=== PATIENT | male | born 1980 | race Caucasian/White ===

== ENCOUNTER → 2016-09-12 | Outpatient (CLI) | payer OTHER ==
--- NOTE | 2016-09-12 13:46 | XR ---
Right elbow HISTORY: Trauma and pain 3 views of the right elbow There is soft tissue swelling posteriorly. No joint effusion. Bone mineralization, joint spaces and a lignment are maintained IMPRESSION: Soft tissue swelling
== END | disposition home or self-care (01) ==
LOC: RADXRMAIN 13:08
PROVIDERS: ATTEND Emergency Medicine
DX: M79.89 Other specified soft tissue disorders (principal)

== ENCOUNTER → 2016-10-02 | Outpatient (CLI) | payer OTHER ==
--- NOTE | 2016-10-02 08:47 | US ---
EXAMINATION TYPE: US abdomen complete DATE OF EXAM: 10/02/2016 8:22 AM COMPARISON: No previous CLINICAL HISTORY: R10.13 epigastric abdominal pain. Intermittent epigastric pain and nausea x 3 weeks , gets worse after eating EXAM MEASUREMENTS: Liver Length: 13.7 cm Gallbladder Wall: 0.15 cm CBD: 0.4 cm Spleen: 12.7 cm Right Kidney: 10.9 cm Left Kidney: 10.7 cm TECHNOLOGIST IMPRESSION: Pancreas: visualized portions wnl, limited by overlying midline bowel gas Liver: wnl Gallbladder: wnl Evidence for sonographic Fagan's sign: no CBD: visualized portions wnl, limited by overlying bowel gas Spleen: wnl Right Kidney: wnl Left Kidney: wnl Upper IVC: wnl Abd Aorta: visualized portions wnl, proximal portion limited by overlying midline bowel gas The visualized liver is slightly heterogeneous. The intrahepatic portion of the IVC and visualized a bdominal aorta are within normal limits. There is no evidence of cholelithiasis. Common bile duct i s unremarkable. The visualized portions of the pancreas are slightly heterogeneous without suspiciou s focal mass or ductal dilatation. Portions of the pancreas are obscured by overlying bowel gas. The spleen is unremarkable. Kidneys are symmetric and free of hydronephrosis. No renal lesions are seen . IMPRESSION: No significant finding is seen to account for patient's symptoms of epigastric abdominal pain.
== END | disposition home or self-care (01) ==
LOC: RADUSMAIN 07:54
PROVIDERS: ATTEND Surgery
DX: R10.13 Epigastric pain (principal)
CPT/HCPCS: 76700

== ENCOUNTER → 2020-05-04 | Outpatient (CLI) | payer MEDICAID | END | disposition home or self-care (01) | LOC: LABWHC1 09:44 | PROVIDERS: ATTEND Pediatrics Pediatric Infectious Diseases | DX: Z03.818 Encounter for observation for suspected exposure to other biological agents ruled out (principal) | CPT/HCPCS: U0003; C9803 ==

== ENCOUNTER 2020-05-14 14:30 | Inpatient (IN) | payer MEDICAID ==
--- NOTE | 2020-05-14 15:02 | ED ---
General Adult HPI - General Chief complaint: Upper Respiratory Infection Stated complaint: + COVID Time Seen by Provider: 05/14/20 14:42 Source: patient Mode of arrival: ambulatory Limitations: no limitations - History of Present Illness Initial comments: Patient is a 39-year-old male presenting to the emergency Department with complaints of continued cough and shortness of breath over the past week. Patient tested positive for Covid 10 days ago. Patient states he did have fevers, loss of taste and smell, nausea and some diarrhea but last week the symptoms have cleared. Patient states he talked to his PCP on Thursday regarding his cough and stated he started him on a Z-Ishaan as well as steroids. She was told if he continues to feel worse to come into the ER. Patient states his cough is still lingering and he feels fatigued still. Patient states otherwise he is feeling improvement. He denies having fevers the last 2 days, no nausea or vomiting, no diarrhea. He states he is able to eat his regular diet starting a few days ago. He admits to some mild shortness of breath but feeling gets more fatigued related. He denies history of asthma, he is a nonsmoker. He has no further complaints. Upon arrival to the ER, he is afebrile, pulse is 103, 94% on room air. - Related Data Home Medications Medication Instructions Recorded Confirmed Azithromycin [Zithromax Z-pack (6 See Taper PO DIRECTED 05/14/20 05/14/20 tabs)] methylPREDNISolone [Medrol Dose See Taper PO DIRECTED 05/14/20 05/14/20 Pack] Allergies Allergy/AdvReac Type Severity Reaction Status Date / Time No Known Allergies Allergy Verified 05/14/20 16:33 Review of Systems ROS Statement: Those systems with pertinent positive or pertinent negative responses have been documented in the HPI. ROS Other: All systems not noted in ROS Statement are negative. Past Medical History Past Medical History: No Reported History History of Any Multi-Drug Resistant Organisms: None Reported Past Surgical History: No Surgical Hx Reported Past Psychological History: No Psychological Hx Reported Smoking Status: Never smoker Past Alcohol Use History: None Reported Past Drug Use History: None Reported General Exam - General Exam Comments Initial Comments: GENERAL: Patient is well-developed and well-nourished. Patient is nontoxic and in no acute distress, appears fatigued. HEAD: Atraumatic, normocephalic. EYES: Pupils equal round and reactive to light, extraocular movements intact, sclera anicteric, conjunctiva are normal. Eyelids were unremarkable. ENT: TMs normal, nares patent, oropharynx clear without exudates. Moist mucous membranes. NECK: Normal range of motion, supple without lymphadenopathy or JVD. LUNGS: Unlabored respirations. Breath sounds clear to auscultation bilaterally and equal. No wheezes rales or rhonchi. HEART: Regular rate and rhythm without murmurs, rubs or gallops. ABDOMEN: Soft, nontender, normoactive bowel sounds. No guarding, no rebound. No masses appreciated. : Deferred MUSCULOSKELETAL: Normal extremities with adequate strength and normal range of motion, no pitting or edema. No clubbing or cyanosis. NEUROLOGICAL: Patient is alert and oriented x 3. Motor and sensory are also intact. Cranial nerves II through XII grossly intact. Symmetrical smile. Normal speech, normal gait. PSYCH: Normal mood, normal affect. SKIN: Warm, Dry, normal turgor, no rashes or lesions noted. Limitations: no limitations Course Vital Signs 05/14/20 05/14/20 14:31 16:57 Temperature 98.3 F 98.1 F Pulse Rate 103 H 99 Respiratory 20 18 Rate Blood Pressure 138/85 122/79 O2 Sat by Pulse 94 L 98 Oximetry Medical Decision Making - Medical Decision Making Patient is 39-year-old male here for fatigue, positive Covid diagnosis 10 days ago. Patient's vitals show pulse is 103, 94% on room air, afebrile. Labs are within normal limits, dimer is normal. Chest x-ray reveals bilateral lower lung acute infiltrates. Patient's vitals are reassessed, he has been satting in 9394% on room air during stay. Given patient's chest x-ray findings and low O2, did recommend admission. Patient is agreeable with this plan of care. I will start him on IV antibiotics. Patient accepted by Dr. Larios. Case discussed with Dr. Mays. - Lab Data Result diagrams: 05/14/20 15:12 05/14/20 15:12 Lab Results 05/14/20 05/14/20 05/14/20 Range/Units 15:12 15:12 15:12 WBC 6.6 (3.8-10.6) k/uL RBC 5.03 (4.30-5.90) m/uL Hgb 14.6 (13.0-17.5) gm/dL Hct 44.4 (39.0-53.0) % MCV 88.3 (80.0-100.0) fL MCH 28.9 (25.0-35.0) pg MCHC 32.7 (31.0-37.0) g/dL RDW 12.8 (11.5-15.5) % Plt Count 260 (150-450) k/uL Neutrophils % 79 % Lymphocytes % 13 % Monocytes % 5 % Eosinophils % 1 % Basophils % 0 % Neutrophils # 5.2 (1.3-7.7) k/uL Lymphocytes # 0.9 L (1.0-4.8) k/uL Monocytes # 0.4 (0-1.0) k/uL Eosinophils # 0.0 (0-0.7) k/uL Basophils # 0.0 (0-0.2) k/uL D-Dimer 0.44 (<0.60) mg/L FEU Sodium 138 (137-145) mmol/L Potassium 4.5 (3.5-5.1) mmol/L Chloride 100 (98-107) mmol/L Carbon Dioxide 32 H (22-30) mmol/L Anion Gap 6 mmol/L BUN 15 (9-20) mg/dL Creatinine 0.93 (0.66-1.25) mg/dL Est GFR (CKD-EPI)AfAm >90 (>60 ml/min/1.73 sqM) Est GFR (CKD-EPI)NonAf >90 (>60 ml/min/1.73 sqM) Glucose 118 H (74-99) mg/dL Calcium 9.0 (8.4-10.2) mg/dL Total Bilirubin 0.6 (0.2-1.3) mg/dL AST 28 (17-59) U/L ALT 18 (4-49) U/L Alkaline Phosphatase 57 (38-126) U/L Total Protein 6.8 (6.3-8.2) g/dL Albumin 4.0 (3.5-5.0) g/dL Disposition Clinical Impression: Pneumonia due to 2019 novel coronavirus, Hypoxia Disposition: ADMITTED IP TO THIS HOSP Condition: Stable Decision Date: 05/14/20 Decision Time: 16:20
[2020-05-14 15:27] LABS: Basophils % (A) 0 %; Eosinophils % (A) 1 %; HCT 44.4 % (39.0-53.0); HGB 14.6 gm/dL (13.0-17.5); Lymphocytes # (A) 0.9 k/uL (1.0-4.8); Lymphocytes % (A) 13 %; MCH 28.9 pg (25.0-35.0); MCHC 32.7 g/dL (31.0-37.0); MCV 88.3 fL (80.0-100.0); Mean Platelet Volume 7.4; Monocytes # (A) 0.4 k/uL (0-1.0); Monocytes % (A) 5 %; Neutrophils # (A) 5.2 k/uL (1.3-7.7); Neutrophils % (A) 79 %; Platelet Count 260 k/uL (150-450); RBC 5.03 m/uL (4.30-5.90); RDW 12.8 % (11.5-15.5); WBC 6.6 k/uL (3.8-10.6)
--- NOTE | 2020-05-14 15:31 | XR ---
EXAMINATION TYPE: XR chest 2V DATE OF EXAM: 05/14/2020 COMPARISON: NONE HISTORY: Cough and congestion. TECHNIQUE: Frontal and lateral views of the chest are obtained. FINDINGS: There is bibasilar patchy opacities greatest in the posterior aspect on lateral view. No pleural effusion or pneumothorax. The cardiac silhouette size is within normal limits. The osseous structures are intact. IMPRESSION: Bilateral lower lung acute infiltrates.
[2020-05-14 15:40] LABS: ALT 18 U/L (4-49); AST 28 U/L (17-59); African American GFR (CKD) >90 (>60 ml/min/1.73 sqM); Alkaline Phosphatase 57 U/L (38-126); Anion Gap 6 mmol/L; Blood Urea Nitrogen 15 mg/dL (9-20); Carbon Dioxide 32 mmol/L (22-30); Chloride 100 mmol/L (98-107); Glucose 118 mg/dL (74-99); Non-African American GFR(CKD) >90 (>60 ml/min/1.73 sqM); Potassium 4.5 mmol/L (3.5-5.1); Sodium 138 mmol/L (137-145); Total Bilirubin 0.6 mg/dL (0.2-1.3); Total Protein 6.8 g/dL (6.3-8.2)
[2020-05-14] MEDS ORDERED: AZITHROMYCIN 500 MG in SODIUM CHLORIDE 0.9% 250 ML IVPB STA (16:20)
[2020-05-14] MEDS ORDERED: PNEUMONIA PROTOCOL UTILIZED 1 EACH MISC PO PRN (16:20)
[2020-05-14] MEDS ORDERED: cefTRIAXone IN SWFI 1,000 MG/10 ML SYRINGE IVP STA (16:24)
[2020-05-14 16:58] VITALS: RESP 18
[2020-05-14 21:41] LABS: C Reactive Protein 44.7 mg/L (<10.0); Magnesium 2.6 mg/dL (1.6-2.3)
[2020-05-14 22:33] LABS: INR 0.9 (<1.2); Prothrombin Time 9.7 sec (9.0-12.0)
[2020-05-15 05:09] LABS: Ferritin 415.3 ng/mL (22.0-322.0)
[2020-05-15 07:40] VITALS: BP 117/77; PULSE 85; TEMP 98.3
[2020-05-15] MEDS ORDERED: AZITHROMYCIN 500 MG in SODIUM CHLORIDE 0.9% 250 ML IVPB STA (08:13)
[2020-05-15] MEDS ORDERED: PNEUMONIA PROTOCOL UTILIZED 1 EACH MISC PO PRN (08:13)
[2020-05-15] MEDS ORDERED: SODIUM CHLORIDE 0.9% 1,000 ML IV SCH (08:30)
--- NOTE | 2020-05-15 08:30 | XR ---
EXAMINATION TYPE: XR chest 1V portable DATE OF EXAM: 05/15/2020 COMPARISON: Prior chest x-ray 05/14/2020 HISTORY: Covid pneumonia TECHNIQUE: Single frontal view of the chest is obtained. FINDINGS: There is no pneumothorax or pleural effusion. Vague patchy density is suspected peripheral ly within the lungs. Cardiomediastinal silhouette, pulmonary vascularity and kassandra are stable. IMPRESSION: Findings are similar to prior exam, correlate for pneumonia.
--- NOTE | 2020-05-15 09:48 | P.HPIM ---
History of Present Illness H&P Date: 05/15/20 Chief Complaint: Shortness of breath 39-year-old male was sent to the emergency department for dyspnea on exertion, generalized malaise, and significant weight loss of 7 pounds within the last 10 days patient was monitored outpatient for positive COVID- 19 the last 9 days, placed on a Z-Ishaan and a Medrol Dosepak on May 11 patient's symptoms progressed sent to the emergency department admitted for bilateral lower lobe pneumonia. Initiated community-acquired pneumonia protocol Covid 19 markers ordered. Review of Systems Constitutional: Reports chills, Reports fatigue, Reports weakness, Reports weight loss Cardiovascular: Reports dyspnea on exertion, Reports shortness of breath (Painful inspiration) Respiratory: Reports congestion, Reports cough (Dry nonproductive), Reports pain on inspiration Musculoskeletal: Reports myalgias Neurological: Reports weakness (GENERALIZED) Past Medical History Past Medical History: No Reported History History of Any Multi-Drug Resistant Organisms: None Reported Past Surgical History: No Surgical Hx Reported Past Anesthesia/Blood Transfusion Reactions: No Reported Reaction Past Psychological History: No Psychological Hx Reported Smoking Status: Never smoker Past Alcohol Use History: None Reported Past Drug Use History: None Reported Medications and Allergies Home Medications and Allergies Comment(s): Home medications and ALLERGIES reviewed Home Medications Medication Instructions Recorded Confirmed Type Azithromycin [Zithromax Z-pack (6 See Taper PO DIRECTED 05/14/20 05/14/20 History tabs)] methylPREDNISolone [Medrol Dose See Taper PO DIRECTED 05/14/20 05/14/20 History Pack] Allergies Allergy/AdvReac Type Severity Reaction Status Date / Time No Known Allergies Allergy Verified 05/14/20 16:33 Physical Exam Vitals: Vital Signs Temp Pulse Pulse Resp BP BP Pulse Ox 05/15/20 07:00 98.3 F 85 18 117/77 98 05/15/20 02:20 98.2 F 81 120/69 98 05/15/20 00:00 18 05/14/20 22:58 99.8 F H 93 18 123/75 97 05/14/20 19:40 94 18 117/68 99 05/14/20 16:57 98.1 F 99 18 122/79 98 05/14/20 14:31 98.3 F 103 H 20 138/85 94 L Intake and Output 05/14/20 05/15/20 05/15/20 22:59 06:59 14:59 Other: Voiding Method Toilet Weight 76.204 kg - Constitutional General appearance: average body habitus - EENT Eyes: EOMI, PERRLA ENT: pharyngeal erythema Ears: bilateral: normal - Neck Carotids: bilateral: upstroke normal Thyroid: bilateral: normal size - Respiratory Respiratory: bilateral: rhonchi (Throughout the posterior bases) - Cardiovascular Normal sinus rhythm Heart rate: 85 Rhythm: regular Heart sounds: normal: S1, S2 - Gastrointestinal General gastrointestinal: normal bowel sounds - Integumentary Integumentary: decreased turgor - Neurologic Neurologic: CNII-XII intact - Musculoskeletal Musculoskeletal: generalized weakness - Psychiatric Psychiatric: A&O x's 3, appropriate affect, intact judgment & insight Results CBC & Chem 7: 05/14/20 15:12 05/14/20 15:12 Labs: Abnormal Lab Results - Last 24 Hours (Table) 05/14/20 05/14/20 05/14/20 Range/Units 15:12 15:12 21:07 Lymphocytes # 0.9 L (1.0-4.8) k/uL Fibrinogen 557 H (200-500) mg/dL Carbon Dioxide 32 H (22-30) mmol/L Glucose 118 H (74-99) mg/dL Magnesium (1.6-2.3) mg/dL Ferritin (22.0-322.0) ng/mL Lactate Dehydrogenase (313-618) U/L C-Reactive Protein (<10.0) mg/L 05/14/20 Range/Units 21:07 Lymphocytes # (1.0-4.8) k/uL Fibrinogen (200-500) mg/dL Carbon Dioxide (22-30) mmol/L Glucose (74-99) mg/dL Magnesium 2.6 H (1.6-2.3) mg/dL Ferritin 415.3 H (22.0-322.0) ng/mL Lactate Dehydrogenase 684 H (313-618) U/L C-Reactive Protein 44.7 H (<10.0) mg/L Abdominal x-ray: report reviewed Thrombosis Risk Factor Assmnt - Choose All That Apply Any of the Below Risk Factors Present?: No Other Risk Factors: No Other congenital or acquired thrombophilia - If yes, enter type in comment: No Thrombosis Risk Factor Assessment Level: Very Low Risk Assessment and Plan Assessment: Pneumonia Covid 19 positive Generalized malaise Plan: Pneumoniacontinue antibiotic therapy CVID-19 positiveconsult pulmonology for recommendations Medical management Time with Patient: Greater than 30
--- NOTE | 2020-05-15 15:44 | P.CNPUL ---
History of Present Illness Consult date: 05/15/20 Requesting physician: Chino Mendez Reason for consult: dyspnea Chief complaint: Exertional dyspnea, COVID 19 infection History of present illness: This is a 39-year-old white male patient of Dr. 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 Patient was complaining of exertional dyspnea, general malaise, and weight loss of 7 pounds in the last 10 days possibly due to poor oral intake, he was sent to the emergency department for further evaluation and treatment. Chest x-ray on admission showed bibasilar patchy opacities. CBC showed evidence of lymphopenia with a lymphocyte count of 0.9, white blood cell count was 6.6, hemoglobin is 14.6, fibrinogen level was slightly elevated at 557, CO2 was 32, the rest the electrolytes and renal profile were unremarkable, glucose was elevated at 118 possibly related to recent history of oral steroid treatment, LDH was 684, troponin was less than 0.012, CRP was 44.7, pro calcitonin was 0.06, LFTs were negative. Patient was given IV hydration, with 0.9 normal saline at a rate of 75 ML per hour, had one isolated low-grade fever of 99.8F, his been on room air, maintaining a sat of 97-98%, hemodynamically stable, his breathing comfortably, no significant cough, no chest pain. Has follow-up chest x-ray showing stable vague patchy densities within the bilateral lungs, pulmonary vascularity and kassandra were stable. Denies any fever or chills. No body aches. Review of Systems All systems: negative Constitutional: Reports fatigue, Denies chills, Denies fever Eyes: denies blurred vision, denies pain Ears, nose, mouth and throat: Denies headache, Denies sore throat Cardiovascular: Denies chest pain, Denies shortness of breath Respiratory: Reports dyspnea, Denies cough Gastrointestinal: Denies abdominal pain, Denies diarrhea, Denies nausea, Denies vomiting Musculoskeletal: Denies myalgias Integumentary: Denies pruritus, Denies rash Neurological: Denies numbness, Denies weakness Psychiatric: Denies anxiety, Denies depression Endocrine: Denies fatigue, Denies weight change Past Medical History Past Medical History: No Reported History History of Any Multi-Drug Resistant Organisms: None Reported Past Surgical History: No Surgical Hx Reported Past Anesthesia/Blood Transfusion Reactions: No Reported Reaction Past Psychological History: No Psychological Hx Reported Smoking Status: Never smoker Past Alcohol Use History: None Reported Past Drug Use History: None Reported Medications and Allergies Home Medications Medication Instructions Recorded Confirmed Type methylPREDNISolone Dose Pack 4 mg PO DIRECTED #21 package 05/15/20 Rx [Medrol Dose Pack] Allergies Allergy/AdvReac Type Severity Reaction Status Date / Time No Known Allergies Allergy Verified 05/14/20 16:33 Physical Exam Vitals: Vital Signs Temp Pulse Pulse Resp BP BP Pulse Ox 05/15/20 12:13 97 05/15/20 07:00 98.3 F 85 18 117/77 98 05/15/20 02:20 98.2 F 81 120/69 98 05/15/20 00:00 18 05/14/20 22:58 99.8 F H 93 18 123/75 97 05/14/20 19:40 94 18 117/68 99 05/14/20 16:57 98.1 F 99 18 122/79 98 Intake and Output 05/15/20 05/15/20 05/15/20 06:59 14:59 22:59 Other: Voiding Method Toilet # Voids 2 GENERAL EXAM: Alert, very pleasant, 39-year-old white male, on room air, with a pulse ox of 97-90% comfortable in no apparent distress. HEAD: Normocephalic/atraumatic. EYES: Normal reaction of pupils, equal size. Conjunctiva pink, sclera white. NOSE: Clear with pink turbinates. THROAT: No erythema or exudates. NECK: No masses, no JVD, no thyroid enlargement, no adenopathy. CHEST: No chest wall deformity. Symmetrical expansion. LUNGS: Equal air entry with no crackles, wheeze, rhonchi or dullness. CVS: Regular rate and rhythm, normal S1 and S2, no gallops, no murmurs, no rubs ABDOMEN: Soft, nontender. No hepatosplenomegaly, normal bowel sounds, no guarding or rigidity. EXTREMITIES: No clubbing, no edema, no cyanosis, 2+ pulses and upper and lower extremities. MUSCULOSKELETAL: Muscle strength and tone normal. SPINE: No scoliosis or deformity SKIN: No rashes CENTRAL NERVOUS SYSTEM: Alert and oriented -3. No focal deficits, tone is normal in all 4 extremities. PSYCHIATRIC: Alert and oriented -3. Appropriate affect. Intact judgment and insight. Results - Laboratory Findings CBC and BMP: 05/14/20 15:12 05/14/20 15:12 PT/INR, D-dimer PT 9.7 sec (9.0-12.0) 05/14/20 21:07 INR 0.9 (<1.2) 05/14/20 21:07 D-Dimer 0.44 mg/L FEU (<0.60) 05/14/20 15:12 Abnormal lab findings: Abnormal Labs 05/14/20 05/14/20 05/14/20 15:12 15:12 21:07 Lymphocytes # 0.9 L Fibrinogen 557 H Carbon Dioxide 32 H Glucose 118 H Magnesium Ferritin Lactate Dehydrogenase C-Reactive Protein 05/14/20 21:07 Lymphocytes # Fibrinogen Carbon Dioxide Glucose Magnesium 2.6 H Ferritin 415.3 H Lactate Dehydrogenase 684 H C-Reactive Protein 44.7 H - Diagnostic Findings Chest x-ray: report reviewed, image reviewed Assessment and Plan Plan: Assessment: #1. Acute Covid 19 related pneumonitis, chest x-ray showing very vague bilateral densities, and patient had outpatient COVID 19 PCR +10 days ago #2. Increased dyspnea, mildly elevated inflammatory markers related to the above #3. Nonsmoker Plan: Chest x-rays have been reviewed, patient has been afebrile, maintaining stable O2 saturations on room air, pro-calcitonin is negative, we'll discontinue antibiotics inflammatory markers reviewed, and they are only mildly elevated, from pulmonary perspective patient is stable for discharge home today on the Medrol dosepak, no need for antibiotics. I performed a history & physical examination of the patient and discussed their management with my nurse practitioner, Ashley Verduzco. I reviewed the nurse practitioner's note and agree with the documented findings and plan of care. Lung sounds are positive for clear breath sounds. The findings and the impression was discussed with the patient. I attest to the documentation by the nurse practitioner. Time with Patient: Greater than 30
--- NOTE | 2020-05-15 18:17 | P.DS ---
Providers Date of admission: 05/14/20 15:56 Expected date of discharge: 05/15/20 Attending physician: Chino Mendez Consults: 05/14/20 18:50 Consult Physician Urgent Consulting Provider: Robbin Umana Consult Reason/Comments: COVID-19 positive with pneumonia Do you want consulting provider notified?: Yes, Notify in am Primary care physician: Chino Mendez - Discharge Diagnosis(es) (1) Pneumonia due to 2019 novel coronavirus Serial chest x-rays revealed bilateral lower lobe densities, mild inflammatory markers, and normal vital signs. Patient discontinued IV antibiotics and oral antibiotics per pulmonology's recommendation patient placed on a Medrol Dosepak for pneumonitis. Status: Acute Priority: Medium Hospital Course: 39-year-old male was be monitored outpatient for positive Covid 19 for an 10 day duration. patient was placed on a Medrol Dosepak and Z-Ishaan on May 11. On May 13, telehealth was performed, patient complained of painful inspiration, dyspnea on exertion, significant weight loss of 7 pounds over the last 10 days. Patient was sent to the emergency department for further diagnostic workup. Extensive diagnostic workup revealed by basilar patchy opacities, with mild elevated of inflammatory markers. Patient received IV antibiotics. Patient was evaluated by pulmonology and recommendations for discontinue of antibiotics, and renewal of a Medrol Dosepak. Patient maintain oxygen saturation on room air. Vitals remained stable during hospital course. Patient denied fever,chills, and generalized malaise throughout hospital stay. Assessment: Acute positive COVID- 19 infection with pneumonitis Exertional dyspnea Elevated inflammatory markers Health Concerns: None noted Pertinent Studies: Serial chest x-rays Procedures: None noted Patient Condition at Discharge: Stable Plan - Discharge Summary Discharge Rx Participant: Yes New Discharge Prescriptions: New methylPREDNISolone Dose Pack [Medrol Dose Pack] 4 mg PO DIRECTED #21 package Discontinued methylPREDNISolone [Medrol Dose Pack] See Taper PO DIRECTED Azithromycin [Zithromax Z-pack (6 tabs)] See Taper PO DIRECTED Discharge Medication List methylPREDNISolone Dose Pack [Medrol Dose Pack] 4 mg PO DIRECTED #21 package 05/15/20 [Rx] Follow up Appointment(s)/Referral(s): Chino Mendez MD [Primary Care Provider] - 1-2 days Discharge Disposition: HOME SELF-CARE
== END 2020-05-15 14:45 | disposition home or self-care (01) | DRG 177 ==
LOC: EC 14:30 → 4SSUR 15:56
PROVIDERS: ADMIT Family Medicine; ATTEND Family Medicine
DX: U07.1 COVID-19 (principal); J12.89 Other viral pneumonia; R09.02 Hypoxemia; R53.81 Other malaise
CPT/HCPCS: 36415; 71045; 71046; 80053; 82550; 82728; 83615; 83735; 84145; 84484; 85025; 85379; 85384; 85610; 85730; 86140; 96365; 96366; 96375; 99285

== ENCOUNTER → 2020-11-01 | Outpatient (CLI) | payer MEDICAID ==
[2020-11-01 11:01] LABS: Basophils # (A) 0.05 X 10*3/uL (0.00-0.10); Basophils % (A) 1.1 %; Eosinophils # (A) 0.07 X 10*3/uL (0.04-0.35); Eosinophils % (A) 1.5 %; HCT 46.5 % (39.6-50.0); HGB 15.2 g/dL (13.0-17.0); Lymphocytes # (A) 1.44 X 10*3/uL (0.90-5.00); Lymphocytes % (A) 31.2 %; MCHC 32.7 g/dL (32.0-37.0); MCV 88.6 fL (80.0-97.0); Mean Platelet Volume 11.2 fL (9.5-12.2); Monocytes # (A) 0.39 X 10*3/uL (0.20-1.00); Monocytes % (A) 8.5 %; Neutrophils # (A) 2.65 X 10*3/uL (1.80-7.70); Neutrophils % (A) 57.5 %; Platelet Count 160 X 10*3/uL (140-440); RBC 5.25 X 10*6/uL (4.40-5.60); RDW 12.4 % (11.5-14.5); WBC 4.61 X 10*3/uL (4.50-10.00)
[2020-11-01 23:09] LABS: African American GFR (CKD) 87.1 (60.0-200.0); Albumin 4.9 g/dL (3.80-4.90); Albumin/Globulin Ratio 2.72 (1.60-3.17); BUN/Creat Ratio 12.5 Ratio (12.00-20.00); Calcium 9.7 mg/dL (8.7-10.3); Chol/HDL Ratio 4.28; Globulin 1.8 g/dL (1.6-3.3); LDL Cholesterol,Calculated 107.4 mg/dL (0.0-131.0); Non-African American GFR(CKD) 75.2 (60.0-200.0); Potassium 4.3 mmol/L (3.5-5.5); Total Bilirubin 0.7 mg/dL (0.2-1.2); Total Protein 6.7 g/dL (6.2-8.2); VLDL Calculation 23.6 mg/dL (5.00-40.00)
[2020-11-01 23:17] LABS: T4, Free (Free Thyroxine) 1.4 ng/dL (0.80-1.80)
== END | disposition home or self-care (01) ==
LOC: LABWHC1 07:25
PROVIDERS: ATTEND Nurse Practitioner
DX: Z00.00 Encounter for general adult medical examination without abnormal findings (principal); R53.83 Other fatigue; Z11.59 Encounter for screening for other viral diseases; Z12.5 Encounter for screening for malignant neoplasm of prostate
CPT/HCPCS: 36415; 80053; 80061; 84402; 84403; 84439; 84443; 85025; 86803

== ENCOUNTER → 2020-11-12 | Outpatient (CLI) | payer MEDICAID ==
--- NOTE | 2020-11-13 09:46 | XR ---
EXAMINATION TYPE: XR cervical spine limited DATE OF EXAM: 11/12/2020 TECHNIQUE: Frontal, lateral, and open mouth view of the cervical spine are obtained. HISTORY: M54.2 . Right-sided neck pain. No injury. COMPARISON: None FINDINGS: The cervical spine is visualized in its entirety from C1 thru the top of T1 level. Normal alignment without evidence of acute fracture or dislocation. Vertebral body heights and disc spaces a re normal. The pre-vertebral soft tissue appears within normal limits. There is some bilateral facet arthropathy, however evaluation of bony encroachment is limited without oblique views. The dens is wi thin normal limits on the open mouth view. IMPRESSION: 1. No acute fracture or dislocation is seen in the cervical spine. 2. Bilateral facet arthropathy. Due to lack of oblique views, neural foraminal bony encroachment is not evaluated.
== END | disposition home or self-care (01) ==
LOC: RADXRMAIN 13:46
PROVIDERS: ATTEND Nurse Practitioner
DX: M47.812 Spondylosis without myelopathy or radiculopathy, cervical region (principal)
CPT/HCPCS: 72040

== ENCOUNTER → 2023-12-14 | Outpatient (CLI) | payer MEDICAID ==
[2023-12-14 16:25] LABS: Basophils # (A) 0.05 X 10*3/uL (0.00-0.10); Basophils % (A) 1.1 %; Eosinophils # (A) 0.11 X 10*3/uL (0.04-0.35); Eosinophils % (A) 2.5 %; HCT 44.3 % (39.6-50.0); HGB 14.8 g/dL (13.0-17.0); Lymphocytes # (A) 1.35 X 10*3/uL (0.90-5.00); Lymphocytes % (A) 30.5 %; MCH 29.7 pg (27.0-32.0); MCHC 33.4 g/dL (32.0-37.0); Mean Platelet Volume 11.7 FL (9.5-12.2); Monocytes # (A) 0.36 X 10*3/uL (0.20-1.00); Monocytes % (A) 8.1 %; NRBC Per 100 WBC 0 X 10*3/uL (0.00-0.01); Neutrophils # (A) 2.54 X 10*3/uL (1.80-7.70); Neutrophils % (A) 57.6 %; Platelet Count 142 X 10*3/uL (140-440); RBC 4.98 X 10*6/uL (4.40-5.60); RDW 12.4 % (11.5-14.5); WBC 4.42 X 10*3/uL (4.50-10.00)
[2023-12-14 16:30] LABS: ALT 21 U/L (10-49); AST 22 U/L (14-35); Albumin 4.8 g/dL (3.8-4.9); Albumin/Globulin Ratio 2.29 Ratio (1.60-3.17); Alkaline Phosphatase 63 U/L (41-126); BUN/Creat Ratio 10.83 Ratio (12.00-20.00); Calcium 9.4 mg/dL (8.7-10.3); Carbon Dioxide 26.1 mmol/L (21.6-31.8); Chloride 106 mmol/L (96-109); Chol/HDL Ratio 3.91 Ratio; Globulin 2.1 g/dL (1.6-3.3); Glucose 105 mg/dL (70-110); LDL Cholesterol,Calculated 93.9 mg/dL (0.0-131.0); Sodium 142 mmol/L (135-145); Total Bilirubin 0.6 mg/dL (0.3-1.2); Total Protein 6.9 g/dL (6.2-8.2)
== END | disposition home or self-care (01) ==
LOC: LABWHC1 07:47
PROVIDERS: ATTEND Family Medicine
DX: Z12.5 Encounter for screening for malignant neoplasm of prostate (principal); E78.5 Hyperlipidemia, unspecified
CPT/HCPCS: 36415; 80053; 80061; 82306; 84153; 84403; 84443; 85025

== ENCOUNTER → 2025-01-11 | Outpatient (CLI) | payer MEDICAID ==
[2025-01-11 15:13] LABS: WBC 4.59 X 10*3/uL (4.50-10.00)
[2025-01-11 15:14] LABS: Basophils # (A) 0.03 X 10*3/uL (0.00-0.10); Basophils % (A) 0.7 %; Eosinophils # (A) 0.10 X 10*3/uL (0.04-0.35); Eosinophils % (A) 2.2 %; HCT 44.7 % (39.6-50.0); HGB 15.0 g/dL (13.0-17.0); Immature Grans, Automated 0.20 %; Lymphocytes # (A) 1.28 X 10*3/uL (0.90-5.00); Lymphocytes % (A) 27.9 %; MCH 29.0 pg (27.0-32.0); MCHC 33.6 g/dL (32.0-37.0); MCV 86.3 FL (80.0-97.0); Monocytes # (A) 0.32 X 10*3/uL (0.20-1.00); Monocytes % (A) 7.0 %; NRBC Per 100 WBC 0 X 10*3/uL (0.00-0.01); Neutrophils # (A) 2.85 X 10*3/uL (1.80-7.70); Neutrophils % (A) 62.0 %; Platelet Count 152 X 10*3/uL (140-440); RBC 5.18 X 10*6/uL (4.40-5.60); RDW 12.1 % (11.5-14.5)
[2025-01-11 15:32] LABS: ALT 31 U/L (10-49); AST 23 U/L (14-35); Albumin 4.7 g/dL (3.8-4.9); Albumin/Globulin Ratio 2.94 Ratio (1.60-3.17); Alkaline Phosphatase 72 U/L (41-126); Anion Gap 9.60 mmol/L (4.00-12.00); BUN/Creat Ratio 11.17 Ratio (12.00-20.00); Blood Urea Nitrogen 13.4 mg/dL (9.0-27.0); Calcium 9.2 mg/dL (8.7-10.3); Carbon Dioxide 26.4 mmol/L (21.6-31.8); Chloride 104 mmol/L (96-109); Cholesterol 150.00 mg/dL (0.00-200.00); Globulin 1.6 g/dL (1.6-3.3); Glucose 100 mg/dL (70-110); HDL Cholesterol 34.00 mg/dL (40.00-60.00); LDL Cholesterol,Calculated 79.2 mg/dL (0.0-131.0); Potassium 4.3 mmol/L (3.5-5.5); Sodium 140 mmol/L (135-145); Total Protein 6.3 g/dL (6.2-8.2); Triglycerides 184.00 mg/dL (0.00-149.00); VLDL Calculation 36.80 mg/dL (5.00-40.00)
== END | disposition home or self-care (01) ==
LOC: LABWHC1 09:54
PROVIDERS: ATTEND Family Medicine
DX: Z12.5 Encounter for screening for malignant neoplasm of prostate (principal); E78.5 Hyperlipidemia, unspecified; R73.9 Hyperglycemia, unspecified
CPT/HCPCS: 36415; 80053; 80061; 83036; 84153; 84402; 84403; 84443; 85025

== ENCOUNTER → 2025-01-24 | Outpatient (CLI) | payer MEDICAID | END | disposition home or self-care (01) | LOC: LABWHC1 11:10 | PROVIDERS: ATTEND Family Medicine | DX: R53.82 Chronic fatigue, unspecified (principal) | CPT/HCPCS: 36415; 82306; 84402; 84403 ==